=== PATIENT | male | born 1980 | race Caucasian/White ===

== ENCOUNTER 2018-07-20 22:57 | Emergency (ER) | payer BC ==
--- NOTE | 2018-07-20 23:55 | XR ---
EXAM: XR Right Knee, 3 views CLINICAL HISTORY: ITS.REASON XR Reason: Pain TECHNIQUE: Three views of the right knee. COMPARISON: None FINDINGS: Bones/joints: Age-indeterminate fracture deformity of the inferior pole of the patella with patella nancy. Multiple ossifications anterior to the right distal femoral condyles. Small right knee joint effusion. Soft tissues: Soft tissue swelling in the anterior right knee. IMPRESSION: Age-indeterminate fracture deformity of the inferior pole of the patella with patella nancy and multiple ossifications anterior to the right distal femoral condyles. Soft tissue swelling in the anterior right knee.
[2018-07-21] MEDS ORDERED: RX INFO: IV CONTRAST WAS GIVEN 1 EACH MISC MISCELLANE PRN (00:36)
--- NOTE | 2018-07-21 00:47 | ED ---
Lower Extremity Injury HPI <Cezar Sung - Last Filed: 07/21/18 02:01> - General Source: patient Mode of arrival: wheelchair Limitations: no limitations <Rhonda Foster - Last Filed: 07/21/18 02:19> - General Chief Complaint: Extremity Injury, Lower Stated Complaint: Knee Injury Time Seen by Provider: 07/21/18 00:24 - History of Present Illness Initial Comments: 37-year-old male patient presents to the emergency department today for evaluation of right knee injury. Patient states he is playing volleyball, states that he went to jump up when he came back down his knee buckled. Bystanders state that the knee did bend in an abnormal manner. Patient states like it dislocated and went back into place. Injury occurred at 2044 this evening. Patient states he has been having discomfort and swelling surrounding the knee since. States he was seen at an emergency department [facility] however the wait was too long so he left and came here. Patient denies any numbness or tingling to the leg. Denies any previous knee injury. He denies any other injuries from the fall. Patient denies any headache, neck pain, back pain, chest pain, shortness of breath, dizziness, weakness, abdominal pain, nausea, vomiting, or difficulties with bowel movements or urination. (Ele Foster) - Related Data Previous Rx's Medication Instructions Recorded Aspirin 325 mg PO DAILY #60 tab 06/07/15 Aspirin EC [Ecotrin] 325 mg PO DAILY tablet. 06/07/15 Diltiazem Cd [Cardizem CD] 180 mg PO DAILY #30 cap.er.24h 06/07/15 Allergies Allergy/AdvReac Type Severity Reaction Status Date / Time No Known Allergies Allergy Verified 07/20/18 23:11 Review of Systems ROS Other: All systems not noted in ROS Statement are negative. <Cezar Sung - Last Filed: 07/21/18 02:01> ROS Other: All systems not noted in ROS Statement are negative. <Rhonda Foster - Last Filed: 07/21/18 02:19> ROS Statement: Those systems with pertinent positive or pertinent negative responses have been documented in the HPI. Past Medical History Past Medical History: No Reported History Additional Past Medical History / Comment(s): RT GROIN HERNIA, History of Any Multi-Drug Resistant Organisms: None Reported Past Surgical History: Orthopedic Surgery Additional Past Surgical History / Comment(s): ORIF RT ANKLE HAS PLATE AND SCREWS. Past Anesthesia/Blood Transfusion Reactions: No Reported Reaction Past Psychological History: No Psychological Hx Reported Smoking Status: Never smoker Past Alcohol Use History: Occasional Past Drug Use History: None Reported - Past Family History Mother Family Medical History: No Reported History Father Family Medical History: Diabetes Mellitus <Rhonda Foster - Last Filed: 07/21/18 02:19> General Exam Limitations: no limitations General appearance: alert, in no apparent distress, other (Physical well- developed, well-nourished adult male patient in no acute distress. Vital signs upon presentation are temperature 98.6F, pulse 86, respirations 18, blood pressure 132/76, pulse ox 95% on room air.) Respiratory exam: Present: normal lung sounds bilaterally. Absent: respiratory distress, wheezes, rales, rhonchi, stridor Cardiovascular Exam: Present: regular rate, normal rhythm, normal heart sounds. Absent: systolic murmur, diastolic murmur, rubs, gallop, clicks Extremities exam: Present: full ROM, tenderness (Right anterior/inferior knee tenderness), normal capillary refill, other (There is swelling surrounding the right knee joint. Patient is unable to flex the knee, does have full extension. Skin to the right lower extremities pink, warm, and dry. Cap refills less than 3 seconds. Pedal and posttibial pulses are 2+ and equal bilaterally.). Absent: normal inspection, pedal edema, joint swelling, calf tenderness Neurological exam: Present: alert, oriented X3, CN II-XII intact Psychiatric exam: Present: normal affect, normal mood Skin exam: Present: warm, dry, intact, normal color. Absent: rash <Rhonda Foster - Last Filed: 07/21/18 02:19> Course Vital Signs 07/20/18 07/21/18 23:07 01:42 Temperature 98.6 F 97.9 F Pulse Rate 86 82 Respiratory 18 16 Rate Blood Pressure 132/76 135/89 O2 Sat by Pulse 95 96 Oximetry Medical Decision Making <Cezar Sung - Last Filed: 07/21/18 02:01> - Radiology Data Radiology results: report reviewed, image reviewed <Rhonda Foster - Last Filed: 07/21/18 02:19> - Medical Decision Making I saw this patient in conjunction with the physician clinical trial assistant. I performed independent history and physical exam. Agree with case management. Given the patient's CT findings, I discussed case with Dr. Thapa, covering vascular surgery who believes that the patient does require higher level care. Discussed with patient and after discussing options patient is requesting [facility]. I discussed the case with Dr. gonzalez, will accept transfer to . (Cezar Sung) 37-year-old male patient presented to the emergency department today for evaluation of right knee injury. Patient reports an injury which was concerning for possible dislocation relocation. Patient states injury occurred around 2044 this evening. Physical examination did reveal soft tissue swelling surrounding the right knee, some tenderness over the inferior anterior knee. Patient good neurovascular status, pedal and posttibial pulses are intact. Patient reports minimal pain rating at a 4-5/10 on the scale. Advanced triage X-ray of the knee was obtained which did show possible patellar fracture. Given the description of injury did perform CT of the knee and CT angiography of the right lower extremity, this did show evidence for possible popliteal artery dissection with a traumatic fracture of the patella. My attending Dr. Sung did discuss the case with the on-call vascular surgeon Dr. Thapa who believes the patient requires a higher level of care. We did discuss this with the patient, he is requesting [facility] for transfer. Patient was placed in a knee immobilizer. IV was initiated, labs obtained. We will start heparin to prevent thrombus formation. (Rhonda Foster) - Radiology Data 3 views of the right knee were performed. Report was reviewed in its entirety. Impression by Dr. Tony shows age-indeterminate fracture deformity of the inferior pole of the patella with patella nancy and multiple ossifications anterior to the right distal femoral condyles. Soft tissue swelling and anterior right knee. CT of the right knee without contrast was obtained. Report was reviewed in its entirety. Impression by Dr. Hollis shows a displaced horizontal fracture inv olving the inferior pole of the patella with the majority of the patella demonstrated in the patella alt configuration. Minimal surrounding hemorrhagic products noted. Small joint effusion identified. CT angiography of the right lower extremity was obtained. Report was reviewed in its entirety. Impression by Dr. Hollis shows linear irregularity filling defect noted within the popliteal artery, suggested and the supra geniculate segment and extending vertically across the knee joint to the infra-geniculate segment with poor filling of the infra-geniculate popliteal artery. This finding is most consistent with traumatic dissection of the popliteal artery causing suspected distal delayed filling or occlusion of the proximal trifurcation vessels. Traumatic fracture involving the inferior pole of the patella is noted with a patella nancy deformity. (Rhonda Foster) Disposition <Cezar Sung - Last Filed: 07/21/18 02:01> - Out of Hospital Transfer - Req. Specs Out of Hospital Transfer - Requested Specifics: Other Emergency Center ([facility]) <Rhonda Foster - Last Filed: 07/21/18 02:19> Clinical Impression: Right knee dislocation, Injury of right popliteal artery, Right patella fracture Disposition: OTHER INSTITUTION NOT DEFINED Condition: Serious Referrals: Abe Flanagan MD [Primary Care Provider] - 1-2 days
--- NOTE | 2018-07-21 01:34 | CT ---
EXAM: CT Angiography of the Right Lower Extremity With Intravenous Contrast CLINICAL HISTORY: Pain TECHNIQUE: Axial computed tomographic angiography images of the right lower extremity with intravenous contrast using CT angiography protocol. CTDI is 12.1 mGy and DLP is 456.4 mGy-cm. This CT exam was performed using one or more of the following dose reduction techniques: automated exposure control, adjustment of the mA and/or kV according to patient size, and/or use of iterative reconstruction technique. MIP reconstructed images were created and reviewed. COMPARISON: No relevant prior studies available. FINDINGS: VASCULATURE: Right femoral/popliteal arteries: There is linear irregularity filling defect noted in the popliteal artery, suggested in the suprageniculate segment and extending vertically across the knee joint to the infrageniculate segment with poor filling of the infrageniculate popliteal artery. Right calf/foot arteries: The proximal trifurcation vessels are not well-defined and do not appear to enhance on this examination. LOWER EXTREMITY: Bones/joints: Traumatic fracture involving the inferior pole of the patella is noted with a patella nancy deformity. No dislocation. Soft tissues: No well-defined hematoma. Minimal subcutaneous increased fat density surrounding the patellar fracture is noted. IMPRESSION: 1. There is linear irregularity filling defect noted within the popliteal artery, suggested in the suprageniculate segment and extending vertically across the knee joint to the infrageniculate segment with poor filling of the infrageniculate popliteal artery. This finding is most consistent with traumatic dissection of the popliteal artery causing suspected distal delayed filling or occlusion of the proximal trifurcation vessels. 2. Traumatic fracture involving the inferior pole of the patella is noted with a patella nancy deformity. <MYCVCSECTION> Critical Value Communications 07/21/18 01:37 Call Doctor Regarding Critical stenosis/arterial occlusion, called TIM Ellis for Dr. Martins on 07/21 01:37 (-04:00)
--- NOTE | 2018-07-21 01:37 | CT ---
EXAM: CT Right Lower Extremity Without Intravenous Contrast, Knee CLINICAL HISTORY: Pain TECHNIQUE: Axial computed tomography images of the right knee without intravenous contrast. CTDI is 12.1 mGy and DLP is 456.4 mGy-cm. This CT exam was performed using one or more of the following dose reduction techniques: automated exposure control, adjustment of the mA and/or kV according to patient size, and/or use of iterative reconstruction technique. COMPARISON: No relevant prior studies available. FINDINGS: Bones/joints: There is a displaced horizontal fracture involving the inferior pole of the patella with the majority of the patella demonstrating the patella nancy configuration. There is a small joint effusion. The distal femur and proximal tibia and fibula appear intact. Soft tissues: Minimal subcutaneous fat stranding surrounding the fracture is noted. No well-defined hematoma identified. IMPRESSION: There is a displaced horizontal fracture involving the inferior pole of the patella with the majority of the patella demonstrating the patella nancy configuration. Minimal surrounding hemorrhagic products noted. Small joint effusion identified.
[2018-07-21 01:47] VITALS: BP 135/89; PULSE 82; RESP 16; TEMP 97.9
[2018-07-21] MEDS ORDERED: HEPARIN SODIUM,PORCINE 5,000 UNIT/ML 1 ML VIAL IV ONE (01:52)
[2018-07-21] MEDS ORDERED: HEPARIN SODIUM,PORCINE 5,000 UNIT/ML 1 ML VIAL IV PRN (01:52)
[2018-07-21] MEDS ORDERED: HEPARIN SOD,PORK IN 0.45% NACL 25,000 UNIT in 0.45% NACL 1 250ML.BAG IV SCH (02:00)
[2018-07-21 02:25] LABS: Basophils # (A) 0.1 k/uL (0-0.2); Basophils % (A) 1 %; Eosinophils # (A) 0.1 k/uL (0-0.7); Eosinophils % (A) 1 %; HCT 43.7 % (39.0-53.0); HGB 15.4 gm/dL (13.0-17.5); Lymphocytes # (A) 2.5 k/uL (1.0-4.8); Lymphocytes % (A) 21 %; MCH 32.2 pg (25.0-35.0); MCHC 35.1 g/dL (31.0-37.0); MCV 91.7 fL (80.0-100.0); Mean Platelet Volume 6.4; Monocytes # (A) 0.9 k/uL (0-1.0); Monocytes % (A) 8 %; Neutrophils # (A) 7.9 k/uL (1.3-7.7); Neutrophils % (A) 67 %; Platelet Count 321 k/uL (150-450); RBC 4.77 m/uL (4.30-5.90); RDW 13.3 % (11.5-15.5); WBC 11.8 k/uL (3.8-10.6)
[2018-07-21 02:36] LABS: Partial Thromboplastin Time 24.3 sec (22.0-30.0); Prothrombin Time 10.4 sec (9.0-12.0)
[2018-07-21 03:49] LABS: Albumin 4.6 g/dL (3.5-5.0); Calcium 10.1 mg/dL (8.4-10.2); Potassium 4.6 mmol/L (3.5-5.1); Total Bilirubin 0.8 mg/dL (0.2-1.3); Total Protein 7.6 g/dL (6.3-8.2)
== END 2018-07-21 02:45 | disposition other institution (70) ==
LOC: EC 22:57
DX: S83.104A Unspecified dislocation of right knee, initial encounter (principal); S82.091A Other fracture of right patella, initial encounter for closed fracture; S85.001A Unspecified injury of popliteal artery, right leg, initial encounter; X50.9XXA Other and unspecified overexertion or strenuous movements or postures, initial encounter; Y93.68 Activity, volleyball (beach) (court)
CPT/HCPCS: 36415; 80053; 85025; 85610; 85730; 73562; 73700; 73706; 99285; 96365; 96376; L1830; J1644 ×2; Q9967